=== PATIENT | male | born 1960 | race African-American/Black ===

== ENCOUNTER 2020-02-19 15:36 | Emergency (ER) | payer OTHER ==
[~2020-02-19] VITALS: Ht 180.3 cm; Wt 119.0 kg
[2020-02-19 18:30] VITALS: BP 122/75
== END 2020-02-19 18:00 | disposition home or self-care (01) ==
LOC: ER 15:36
DX: R45.851 Suicidal ideations (principal); E78.00 Pure hypercholesterolemia, unspecified
CPT/HCPCS: 99284